=== PATIENT | male | born 1980 | race Hispanic/Latino ===

== ENCOUNTER 2024-10-29 14:48 | Emergency (ER) | payer SELFPAY ==
[~2024-10-29] VITALS: Ht 182.9 cm; Wt 113.4 kg
[2024-10-29] MEDS ORDERED: SODIUM CHLORIDE 0.9% 100 ML ONE (15:40)
[2024-10-29] MEDS ORDERED: IOPAMIDOL 370 MG/ML 100 ML INFUS..BTL INJ ONE (15:40)
[2024-10-29 15:56] LABS: BASOPHILS # (AUTO) 0.1 (0.0-0.1); BASOPHILS % 0.8 % (0.0-1.0); EOSINOPHILS # (AUTO) 0.1 (0.0-0.4); EOSINOPHILS % 1.5 % (0.0-6.0); HEMATOCRIT 41.8 % (38.2-49.6); HEMOGLOBIN 14.2 g/dL (14.0-18.0); LYMPHOCYTES # (AUTO) 2.9 (1.0-3.2); LYMPHOCYTES % 39.8 % (18.0-39.1); MEAN CORPUSCULAR HEMOGLOBIN 30.3 pg (28-32); MEAN CORPUSCULAR VOLUME 89.3 fL (81-99); MONOCYTES # (AUTO) 0.5 (0.2-0.8); MONOCYTES % 6.6 % (4.4-11.3); NEUTROPHILS # (AUTO) 3.8 (2.1-6.9); NEUTROPHILS % 50.9 % (38.7-80.0); PLATELET COUNT 194 x10e3/uL (140-360); RED BLOOD COUNT 4.68 x10e6/uL (4.3-5.7); RED CELL DISTRIBUTION WIDTH 13.1 % (11.7-14.4); WHITE BLOOD COUNT 7.38 x10e3/uL (4.8-10.8)
[2024-10-29 16:19] LABS: INR 0.89; PROTHROMBIN TIME 12.6 seconds (11.9-14.5)
[2024-10-29 16:20] LABS: PARTIAL THROMBOPLASTIN TIME 26.4 seconds (23.8-35.5)
[2024-10-29 16:32] LABS: ALANINE AMINOTRANSFERASE 86 IU/L (0-55); ALBUMIN 3.9 g/dL (3.5-5.0); ALBUMIN/GLOBULIN RATIO 1.3 (0.8-2.0); ALKALINE PHOSPHATASE 61 IU/L (40-150); ANION GAP 15.1 mmol/L (8-16); BILIRUBIN,TOTAL 0.4 mg/dL (0.2-1.2); BLOOD UREA NITROGEN 13 mg/dL (7-26); BUN/CREATININE RATIO 11 (6-25); CALCIUM 8.7 mg/dL (8.4-10.2); CARBON DIOXIDE 23 mmol/L (22-29); CHLORIDE 104 mmol/L (98-107); CREATINE KINASE 156 IU/L (30-200); CREATININE, SERUM 1.17 mg/dL (0.72-1.25); EST GLOMERULAR FILTRATION RATE 78 ML/MIN (>=60); GLUCOSE 129 mg/dL (74-118); MAGNESIUM 1.9 MG/DL (1.3-2.1); POTASSIUM 4.1 mmol/L (3.5-5.1); SODIUM 138 mmol/L (136-145); TOTAL PROTEIN 6.9 g/dL (6.5-8.1)
[2024-10-29 16:42] LABS: TROPONIN I < 0.001 ng/mL (0-0.300)
[2024-10-29] MEDS: SODIUM CHLORIDE 0.9% 1000ML 1,000 ML IV STA (17:40)
[2024-10-29 17:42] VITALS: PULSE 82; RESP 16
[2024-10-29] MEDS: DEXAMETHASONE SOD PHOS 10 MG/1 ML VIAL IV ONE (18:23)
[2024-10-29] MEDS ORDERED: MEDROL4 M2 PO (18:43)
[2024-10-29 18:52] VITALS: BP 129/84; PULSE 87; RESP 18; TEMP 98.3; O2SAT 98
== END 2024-10-29 18:54 | disposition home or self-care (01) ==
LOC: ER 15:35
DX: R20.0 Anesthesia of skin (principal); M62.81 Muscle weakness (generalized); Z87.19 Personal history of other diseases of the digestive system
CPT/HCPCS: 36415; 70496; 70498; 71045; 72141; 80053; 80320; 82550; 83735; 84484; 85025; 85610; 85730; 93005; 99284; J1100; J7030; J7050; Q9967